=== PATIENT | female | born 1955 | race Asian ===

== ENCOUNTER 2020-05-30 19:16 | Emergency (ER) | payer OTHER ==
[~2020-05-30] VITALS: Ht 167.6 cm; Wt 59.0 kg
[~2020-05-30 19:16] MED LIST: AMLO-212 PO; ATOR20TA PO; BENZ1TAB7 PO; BUSP10TA3 PO; DIVA500T2 PO; OLAN10TA3 PO; OLAN5TAB3 PO; PHEN100C12 PO; SERT50TA PO
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
--- NOTE | 2020-05-30 19:30 | NUR ---
[employer] LEAVING PT IN HOSPITAL CARE. PD HANDCUFFS REMOVED, PLACED ON BILATERAL WRIST RESTRAINTS FOR SAFETY/DISTRUPTION OF CARE
[2020-05-30] MEDS ORDERED: OLANZAPINE 10 MG VIAL IM ONE (19:58)
[2020-05-30] MEDS: OLANZAPINE 10 MG VIAL IM ONE (20:01)
[2020-05-30 20:21] LABS: BASOPHILS % (AUTO) 0.5 % (0.0-2.0); EOSINOPHILS % (AUTO) 1.3 % (0.0-6.0); HEMATOCRIT 41 % (33-45); HEMOGLOBIN 13.6 g/dL (11.5-14.8); LYMPHOCYTES # (AUTO) 1.3 /CMM (0.8-4.8); LYMPHOCYTES % (AUTO) 20.8 % (20.0-44.0); MEAN CORPUSCULAR HGB CONC 34 g/dl (31.0-36.0); MEAN CORPUSCULAR VOLUME 97 fL (82-100); MONOCYTES % (AUTO) 16.4 % (2.0-12.0); NEUTROPHILS # (AUTO) 3.9 /CMM (1.8-8.9); PLATELET COUNT (AUTO) 228 /CMM (150-450); WHITE BLOOD COUNT (AUTO) 6.3 K/uL (4.3-11.0)
--- NOTE | 2020-05-30 20:30 | NUR ---
RESTRAINTS DISCONTINUED. PT NOW CALM AND COMPLIANT, SITTER REMAINS AT BEDSIDE.
[2020-05-30 20:38] LABS: ALANINE AMINOTRANSFERASE 28 U/L (12-78); ALBUMIN 3.1 g/dL (3.4-5.0); ALCOHOL, BLOOD < 3 mg/dL (0-0); ALKALINE PHOSPHATASE 88 U/L (46-116); ASPARTATE AMINOTRANSFERASE 40 U/L (15-37); BILIRUBIN,DIRECT 0.1 mg/dL (0.0-0.2); BILIRUBIN,TOTAL 0.2 mg/dL (0.2-1.0); CALCIUM, SERUM 8.8 mg/dL (8.5-10.1); CARBON DIOXIDE 26 mmol/L (21-32); CHLORIDE 106 mmol/L (98-107); CREATININE 1.1 mg/dL (0.6-1.3); GLUCOSE 138 mg/dL (74-106); POTASSIUM 3.7 mmol/L (3.5-5.1); SODIUM SERUM 145 mmol/L (136-145); TOTAL PROTEIN, SERUM 7.6 g/dL (6.4-8.2); UREA NITROGEN, BLOOD 29 mg/dL (7-18)
[2020-05-30 20:41] LABS: ACETAMINOPHEN < 2 ug/ml (10-30)
--- NOTE | 2020-05-30 21:34 | NUR ---
LAB CALLED REGARDING NEGATIVE COVID RESULT.
[2020-05-30 22:00] LABS: BILIRUBIN,URINE Negative (NEGATIVE); BLOOD, URINE Trace-intact Ery/uL (NEGATIVE); COLOR,URINE YELLOW (YELLOW); LEUKOCYTE ESTERASE ,URINE Moderate (NEGATIVE); NITRITE, URINE Negative (NEGATIVE); PROTEIN,URINE Negative (NEGATIVE); UGLUCOSE Negative (NEGATIVE); UROBILINOGEN,URINE 0.2 EU/dL (0.2)
[2020-05-30 22:20] LABS: BACTERIA,URINE 2+ /HPF (None Seen); SQUAMOUS EPITHELIAL CELL,UR Few /HPF (None Seen)
[2020-05-30 22:26] LABS: PHENYTOIN (DILANTIN) 9.5 ug/ml (10.0-20.0)
[2020-05-30 22:59] LABS: BAND % (MANUAL) 3 % (0.0-5.0); LYMPHOCYTES % (MANUAL) 17 % (16-48); MONOCYTES % (MANUAL) 16 % (0-11.0); NEUTROPHILS % (MANUAL) 64 (42-76)
[2020-05-30] MEDS ORDERED: CEPHALEXIN MONOHYDRATE 500 MG CAPSULE PO ONE (23:06)
[2020-05-30] MEDS: CEPHALEXIN MONOHYDRATE 500 MG CAPSULE PO ONE (23:06)
--- NOTE | 2020-05-30 23:49 | NUR ---
PT RESTING QUIETLY, NAD NOTED. PT COOPERATIVE AND VERY APOLOGETIC
--- NOTE | 2020-05-31 00:40 | NUR ---
PT RESTING QUIETLY, NAD NOTED, ASLEEP EASILY AROUSABLE. TOLERATING ON ROOM AIR.
--- NOTE | 2020-05-31 02:03 | NUR ---
rec'd a call from [place] at poison control with advice to recheck the amonia, valproic acid and phentoin level in 4-6 hrs and if it's not increased pt can be discharged. made aware.
--- NOTE | 2020-05-31 02:30 | NUR ---
PT NOW AWAKE, APPEARS AGITATED, SCREAMING AND CRYING. CONSTANTLY ASKING PATEINT WHAT IS WRONG AND HOW TO HELP, PT REMAINS CRYING AND SAYING "I'M SORRY". SITTER STILL AT BEDSIDE, CALL LIGHT WITHIN REACH. MADE AWARE
[2020-05-31] MEDS ORDERED: LORAZEPAM INJ 2 MG/ML VIAL ONE (02:32)
[2020-05-31] MEDS: LORAZEPAM INJ 2 MG/ML VIAL IM ONE (02:37)
--- NOTE | 2020-05-31 03:11 | NUR ---
PT IN BED, ON MONITOR AND PULSE OX.
--- NOTE | 2020-05-31 06:18 | NUR ---
PT REMAINS ASLEEP, VSS. PROVIDED WITH MORE BLANKETS.
[2020-05-31 07:00] LABS: PHENYTOIN (DILANTIN) 9.4 ug/ml (10.0-20.0)
--- NOTE | 2020-05-31 09:29 | NUR ---
CALLED [facility] VS 140/80 100 97% RR 18 MD WILL BE CONTACTING DR. MAYBERRY IN A BIT.
--- NOTE | 2020-05-31 10:04 | NUR ---
PATIENT AWAKE ALERT AND ORIENTED, GIVEN BREAKFAST TRAY BUT REFUSED. SHE STATED SHE'S NOT HUNGRY YET.
[2020-05-31 10:14] LABS: ALBUMIN 2.9 g/dL (3.4-5.0); BILIRUBIN,DIRECT 0.1 mg/dL (0.0-0.2); BILIRUBIN,TOTAL 0.2 mg/dL (0.2-1.0); TOTAL PROTEIN, SERUM 7.1 g/dL (6.4-8.2)
--- NOTE | 2020-05-31 11:27 | NUR ---
PATIENT A/OX4, VERBALLY RESPONSIVE. [facility] AT BEDSIDE FOR CONSULT.
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
--- NOTE | 2020-05-31 13:18 | NUR ---
SUMAN CALLED PLS FAX HOLD AND FACE SHEET TO [facility] @ [phone] PER HEBER.
--- NOTE | 2020-05-31 14:41 | NUR ---
FAXED CLINICALS TO [facility] FA[facility]# [phone].
--- NOTE | 2020-05-31 15:42 | NUR ---
FAXED COVID RESULT TO [facility]. FAX# [phone]. C/O SMITA PHONE# [phone]
--- NOTE | 2020-05-31 16:20 | NUR ---
12:00pm ANNETTE spoke with ED physician Dr. Barroso regarding assessment findings. Dr. Barroso in agreement to call [employer] medication care manager. ANNETTE spoke with instructor flyingVannesa Quintero to call Mitchell Rendon LCSW [phone] [employer] medication care manager. ANNETTE remains available for all needs regarding this patient.
--- NOTE | 2020-05-31 16:57 | NUR ---
ANNETTE confirmed [place] information with ED BRISEIDA Gonzalez and salvage repairerVannesa Carmichael. [facility] [phone]. ED BRISEIDA Gonzalez and salvage repairer Jany informed this ANNETTE COVID results were faxed and number for follow-up was provided to them [phone]. ANNETTE remains available for all needs regarding this patient.
--- NOTE | 2020-05-31 18:07 | NUR ---
SPOKE TO JACKIE OF [facility] [phone], PROVIDED W CLINICALS. REQUESTS DILANTIBolivar RAMON. MADE AWARE
--- NOTE | 2020-05-31 18:47 | NUR ---
WILL CALLED [facility] ACCEPTED IN [facility] DR. PEDRO JONES IS AT 2000 WITH FEMALE ATTENDANT GOING TO UNIT 2 CALL [phone] FOR REPORT.
--- NOTE | 2020-05-31 19:06 | NUR ---
PATIENT ACCEPTED AT [facility]. AWAITING CALL BACK FOR TRANSFER INFO
[2020-05-31 19:33] VITALS: BP 141/78
--- NOTE | 2020-05-31 19:48 | NUR ---
REPORT CALLED TO [facility] BRISEIDA WHITTINGTON.
--- NOTE | 2020-05-31 19:58 | NUR ---
REPORT GIVEN TO [facility] TE[facility] FOR [facility]. AND TRANSFERRING RESPONSIBILTIES.
== END 2020-05-31 20:17 | disposition short-term general hospital (02) ==
LOC: ER 19:18
DX: T46.6X2A Poisoning by antihyperlipidemic and antiarteriosclerotic drugs, intentional self-harm, initial encounter (principal); Y92.039 Unspecified place in apartment as the place of occurrence of the external cause; F25.9 Schizoaffective disorder, unspecified; N39.0 Urinary tract infection, site not specified; R79.89 Other specified abnormal findings of blood chemistry; E78.5 Hyperlipidemia, unspecified; I10 Essential (primary) hypertension; Z86.011 Personal history of benign neoplasm of the brain; E11.9 Type 2 diabetes mellitus without complications; G40.909 Epilepsy, unspecified, not intractable, without status epilepticus; Z79.899 Other long term (current) drug therapy; Z88.8 Allergy status to other drugs, medicaments and biological substances; G93.89 Other specified disorders of brain; R00.0 Tachycardia, unspecified; Z20.828 Contact with and (suspected) exposure to other viral communicable diseases; R94.4 Abnormal results of kidney function studies
CPT/HCPCS: 36415 ×2; 80048; 80076 ×2; 80164 ×2; 80185 ×2; 80299; 80307; 80320; 81001; 82140 ×2; 82550; 85007; 85025; 87086; 87426; 93005; 96372 ×2; 99285; C9803; J2060; J3490; G0480

== ENCOUNTER 2020-07-19 13:47 | Emergency (ER) | payer OTHER ==
[~2020-07-19] VITALS: Ht 162.6 cm; Wt 60.8 kg
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
--- NOTE | 2020-07-19 14:50 | NUR ---
DONNIE SANTOS AT BEDSIDE FOR EVAL.
[2020-07-19 15:06] LABS: BASOPHILS % (AUTO) 0.2 % (0.0-2.0); HEMATOCRIT 42 % (33-45); HEMOGLOBIN 14.3 g/dL (11.5-14.8); LYMPHOCYTES # (AUTO) 0.9 /CMM (0.8-4.8); MEAN CORPUSCULAR HGB CONC 34 g/dl (31.0-36.0); MEAN CORPUSCULAR VOLUME 94 fL (82-100); MONOCYTES # (AUTO) 1.2 /CMM (0.1-1.30); MONOCYTES % (AUTO) 11.6 % (2.0-12.0); NEUTROPHILS # (AUTO) 8.2 /CMM (1.8-8.9); NEUTROPHILS % (AUTO) 79.2 % (43.0-81.0); PLATELET COUNT (AUTO) 249 /CMM (150-450); RED BLOOD CELL COUNT(AUTO) 4.46 MIL/uL (4.0-5.2); WHITE BLOOD COUNT (AUTO) 10.3 K/uL (4.3-11.0)
--- NOTE | 2020-07-19 15:21 | NUR ---
Social Service Consult: SW consult request by ER staff for a 64 year old female. ANNETTE met with pt at ER bed 14 with RN (Derrick) at 1510pm to assist with patient. SW is unable to interview due to behavior issues. Pt toxicology is still pending. ANNETTE spoke to RN (Derrick) to contact social science analyst once the patient is ready to do an assessment. Plan: SW will follow up with the patient is agreeable to participate in interview and assessment.
[2020-07-19 15:24] LABS: ALANINE AMINOTRANSFERASE 29 U/L (12-78); ALBUMIN 3.4 g/dL (3.4-5.0); ALCOHOL, BLOOD < 3 mg/dL (0-0); ALKALINE PHOSPHATASE 92 U/L (46-116); ASPARTATE AMINOTRANSFERASE 36 U/L (15-37); BILIRUBIN,DIRECT 0.2 mg/dL (0.0-0.2); BILIRUBIN,TOTAL 0.5 mg/dL (0.2-1.0); CALCIUM, SERUM 9.2 mg/dL (8.5-10.1); CARBON DIOXIDE 25 mmol/L (21-32); CHLORIDE 100 mmol/L (98-107); CREATININE 1.6 mg/dL (0.6-1.3); GLUCOSE 173 mg/dL (74-106); POTASSIUM 3.3 mmol/L (3.5-5.1); SODIUM SERUM 141 mmol/L (136-145); TOTAL PROTEIN, SERUM 8.3 g/dL (6.4-8.2); UREA NITROGEN, BLOOD 34 mg/dL (7-18)
[2020-07-19 15:32] LABS: ACETAMINOPHEN < 0 ug/ml (10-30)
[2020-07-19] MEDS ORDERED: POTASSIUM CHLORIDE 20 MEQ TAB.PRT.SR PO ONE ×2 (16:00→16:21)
[2020-07-19] MEDS ORDERED: IV NS 0.9% 1,000 ML IV ONE (16:00)
[2020-07-19] MEDS ORDERED: PHENYTOIN EXTENDED RELEASE 100 MG CAPSULE PO ONE ×2 (16:00→16:21)
[2020-07-19 16:04] LABS: BILIRUBIN,URINE SMALL (NEGATIVE); COLOR,URINE YELLOW (YELLOW); LEUKOCYTE ESTERASE ,URINE NEGATIVE (NEGATIVE); NITRITE, URINE NEGATIVE (NEGATIVE); PROTEIN,URINE TRACE mg/dl (NEGATIVE); UGLUCOSE NEGATIVE (NEGATIVE)
[2020-07-19 16:24] LABS: BACTERIA,URINE Few /HPF (None Seen); RBC,URINE 0-2 /HPF (0-2); SQUAMOUS EPITHELIAL CELL,UR Few /HPF (None Seen); WBC,URINE 0-2 /HPF (0-3)
--- NOTE | 2020-07-19 16:48 | NUR ---
COVID SWAB DONE AND SENT TO LAB
--- NOTE | 2020-07-19 16:49 | NUR ---
CALLED [facility], REQUESTED SNAPSHOT, AWAITING MD CALL BACK
--- NOTE | 2020-07-19 16:49 | NUR ---
MADE AWARE OF BP 170/109. AWAITING ORDERS
--- NOTE | 2020-07-19 16:54 | NUR ---
SUMAN SANTOS SPEAKING WITH DR URIBE
[2020-07-19] MEDS ORDERED: CLONIDINE HCL 0.1 MG TABLET PO ONE (17:00)
[2020-07-19] MEDS ORDERED: CLONIDINE HCL 0.1 MG TABLET ONE (17:11)
--- NOTE | 2020-07-19 17:12 | NUR ---
[facility] EVBECCA ANGEL ETA 1 HOUR
--- NOTE | 2020-07-19 18:02 | NUR ---
received a call from the lab regarding covid 19 result "negative". notified
[2020-07-19] MEDS ORDERED: LEVO50TA8 PO (18:46)
[2020-07-19] MEDS ORDERED: CHLO473M2 MM (18:46)
--- NOTE | 2020-07-19 18:55 | NUR ---
JEANNE RN AT BEDSIDE FOR PSYCH EVAL
--- NOTE | 2020-07-19 19:15 | NUR ---
AWAITING CALL FROM [facility]
--- NOTE | 2020-07-19 19:41 | NUR ---
SPOKE WITH [facility]. FOR CLINICALS FOR PT PLACEMENT. WILL CALL BACK FOR CONFIRMATION OF ACCEPTANCE
--- NOTE | 2020-07-19 19:43 | NUR ---
FAXED FACESHEET AND CLINICALS TO [facility]
--- NOTE | 2020-07-19 23:18 | NUR ---
PT AMBULATED FROM [facility] TO THE RESTROOM ON STE[facility]Y GAIT.
--- NOTE | 2020-07-20 08:02 | NUR ---
PATIENT IN BED ASLEEP, EASILY AROUSABLE BY VOICE. HOOKED TO MONITOR. SITTER AT BEDSIDE FOR SAFETY. WILL CONTINUE TO MONITOR ACCORDINGLY.
--- NOTE | 2020-07-20 09:49 | NUR ---
RECEIVED CALL FROM JOSE ALFREDO ([facility]) [phone]. PROVIDED W CLINICALS. [facility] WILL CALL US BACK FOR BED AVAILABILITY
--- NOTE | 2020-07-20 10:19 | NUR ---
CALL BACK FROM [facility], WANTS BMP REPEATED AND EKG FAXED TO [phone],TEL#[phone]
--- NOTE | 2020-07-20 10:25 | NUR ---
NIRMALA FROM [facility] PT GOING TO [facility] UNIT 2 CALL [phone] ACCEPTING MD KATARZYNA FANG WILL BE TRANSPORTED IN 60 MINS. WILL CALL BACK WITH NAME OF TRANSPORT.
[2020-07-20 11:56] VITALS: BP 101/52
--- NOTE | 2020-07-20 11:57 | NUR ---
IV removed. Catheter intact and site benign. Pressure and 4x4 applied to site. No bleeding noted.
--- NOTE | 2020-07-20 12:03 | NUR ---
PICKED UP BY [facility] UNIT [facility] IN STABLE CONDITION. PATIENT WILL BE TRANSFERRED TO [facility]. ORIGINAL COPY OF 5150 HOLD HANDED TO [facility].
== END 2020-07-20 12:03 | disposition short-term general hospital (02) ==
LOC: ER 13:48
DX: F23 Brief psychotic disorder (principal); E86.0 Dehydration; E87.6 Hypokalemia; Z91.14 Patient's other noncompliance with medication regimen; Z20.822 Contact with and (suspected) exposure to COVID-19; R94.31 Abnormal electrocardiogram [ECG] [EKG]; Z88.8 Allergy status to other drugs, medicaments and biological substances; F31.9 Bipolar disorder, unspecified; G40.909 Epilepsy, unspecified, not intractable, without status epilepticus; I10 Essential (primary) hypertension; E78.5 Hyperlipidemia, unspecified
CPT/HCPCS: 36415; 80048; 80076; 80164; 80185; 80299; 80307; 80320; 81001; 85025; 87426; 93005; 96360; 99285; C9803; J7030; G0480

== ENCOUNTER 2025-03-20 22:02 | Emergency (ER) | payer MEDICARE, OTHER ==
[~2025-03-20] VITALS: Ht 165.1 cm; Wt 49.9 kg
[~2025-03-20 22:02] MED LIST changes: -BENZ1TAB7 PO; -BUSP10TA3 PO; +CHLO473M2 MM; +LEVO50TA8 PO
[2025-03-20] MEDS ORDERED: LORAZEPAM INJ 2 MG/ML VIAL ONE (22:48)
[2025-03-20] MEDS: LORAZEPAM INJ 2 MG/ML VIAL IM ONE (22:51)
[2025-03-21 00:34] VITALS: BP 134/57; TEMP 98; O2SAT 96
== END 2025-03-21 00:35 ==
LOC: ER 22:09
DX: S00.93XA Contusion of unspecified part of head, initial encounter (principal); I10 Essential (primary) hypertension; E11.9 Type 2 diabetes mellitus without complications; E06.3 Autoimmune thyroiditis; D32.0 Benign neoplasm of cerebral meninges; F03.93 Unspecified dementia, unspecified severity, with mood disturbance; F25.9 Schizoaffective disorder, unspecified; F31.9 Bipolar disorder, unspecified; G40.909 Epilepsy, unspecified, not intractable, without status epilepticus; I25.2 Old myocardial infarction; Z79.899 Other long term (current) drug therapy; Z88.8 Allergy status to other drugs, medicaments and biological substances; W18.30XA Fall on same level, unspecified, initial encounter; Y93.89 Activity, other specified; Y92.89 Other specified places as the place of occurrence of the external cause; Y99.9 Unspecified external cause status
CPT/HCPCS: 99285; 70450; 96372; J2060